=== PATIENT | male | born 1995 | race Caucasian/White ===

== ENCOUNTER 2017-11-07 11:35 | Emergency (ER) | payer OTHER ==
[~2017-11-07] VITALS: Ht 185.4 cm; Wt 104.3 kg
[2017-11-07 12:06] VITALS: BP_SYST 154
[2017-11-07] MEDS: IBUPROFEN 800 MG TABLET PO ONE (13:14)
[2017-11-07 13:20] VITALS: BP_SYST 132
== END 2017-11-07 13:20 | disposition home or self-care (01) ==
LOC: SED 11:35
DX: S93.402A Sprain of unspecified ligament of left ankle, initial encounter (principal); V00.131A Fall from skateboard, initial encounter; Y93.21 Activity, ice skating; Y92.89 Other specified places as the place of occurrence of the external cause; Y99.8 Other external cause status
CPT/HCPCS: 99284